=== PATIENT | male | born 1930 | race Caucasian/White ===

== ENCOUNTER 2019-03-10 03:30 | Emergency (ER) | payer MEDICARE, OTHER ==
[2019-03-10] MEDS ORDERED: Morphine 4 MG/ML VIAL ONE (04:17)
[2019-03-10 04:59] LABS: Hemoglobin 11.7 g/dL (14.0-18.0); Mean Corpuscular HGB CONC 33.5 g/dL (32.0-36.0); Mean Corpuscular Hemoglobin 36.8 pg (27.0-31.0); Mean Platelet Volume 8.3 fL (7.4-10.4); Platelet Count 245 thou/uL (130-400); RBC Distribution Width 13.1 % (11.5-14.5); Red Blood Cell (RBC) Count 3.19 mill/uL (4.70-6.10); White Blood Cell (WBC) Count 7.5 thou/uL (4.8-10.8)
[2019-03-10 05:17] LABS: ALT (SGPT) 30 U/L (8-55); AST (SGOT) 22 U/L (5-34); Albumin 4.2 g/dL (3.4-4.8); Alkaline Phosphatase 79 U/L (40-150); Anion Gap 11 mmol/L (10-20); BUN (Urea Nitrogen) 17 mg/dL (8.4-25.7); Bilirubin, Total 0.9 mg/dL (0.2-1.2); Calc. Creatinine Clearance 0 mL/min (70-130); Carbon Dioxide 25 mmol/L (23-31); Chloride 100 mmol/L (98-107); Estimated GFR-MDRD 79; Globulin 2.9 g/dL (2.4-3.5); Glucose 105 mg/dL (83-110); Lipase 28 U/L (8-78); Magnesium 2.2 mg/dL (1.6-2.6); Potassium 3.9 mmol/L (3.5-5.1); Protein, Total 7.1 g/dL (5.8-8.1); Sodium 132 mmol/L (136-145)
[2019-03-10 05:19] LABS: #Lymphocytes 1.7 thou/uL (1.20-3.40); #Monocytes 0.8 thou/uL (0.11-0.59); %Basophils 0.5 % (0.0-1.0); %Eosinophils 0.2 % (0.0-10.0); %Lymphocytes 22.5 % (21.0-51.0); %Monocytes 10.2 % (0.0-10.0); %Neutrophils 66.5 % (42.0-75.0)
[2019-03-10 05:20] LABS: MDiff Complete? YES; Macrocytosis MODERATE=16-30 cells (100X) (0-5/hpf); Platelet Morphology Comment Appears Adequate
--- NOTE | 2019-03-10 09:43 | CT ---
PRELIMINARY REPORT/[facility]/EMERGENCY AFTER HOURS PROCEDURE: EXAM: CT Abdomen and Pelvis With Contrast EXAM DATE/TIME: 03/10/2019 5:40 AM CLINICAL HISTORY: 88 years old, male; Patient HX: Gulshan presents to ED for lower abdominal pain that began on Saturday. Rep orts normal bm on Saturday morning, reports some increase in gas and abdominal distension. PT denies ch ills or fever, denies n/v/d, denies testicular pain, never had similar SX before. PT reports recent increase in leg swelling which is being treated by his pcp. Hx- allergy to penicillin and sulf a drugs; No medical problems; No abdominal surgeries TECHNIQUE: Imaging protocol: Computed tomography of the abdomen and pelvis with intravenous contrast. COMPARISON: No relevant prior studies available. FINDINGS: Lungs: There is compressive atelectasis the lung bases. Pleural space: There is moderate right and small left pleural effusion. Liver: There are multiple simple hepatic cysts. Gallbladder and bile ducts: The gallbladder is normal. There is no evidence of biliary ductal dilatio n. Pancreas: The pancreas appears normal. No ductal dilatation. Spleen: The spleen is normal. Adrenals: The adrenal glands are normal. Kidneys and ureters: There is wedge-shaped area of parenchymal hypoattenuation involving the lower po le of the left kidney possibly representing lower pole renal infarction. There are small right renal cortical defects possibly representing small cysts versus sequela from prior infection or injur y. Stomach and bowel: The stomach is normal. Appendix: No evidence of appendicitis. Intraperitoneal space: Unremarkable. No free air. No significant fluid collection. Vasculature: The vasculature demonstrates diffuse moderate atherosclerotic calcification. Lymph nodes: Unremarkable. No enlarged lymph nodes. Bladder: The bladder is normal. Reproductive: The prostate gland demonstrates nonspecific parenchymal calcifications. Bones/joints: Unremarkable. No acute fracture. Soft tissues: Unremarkable. IMPRESSION: 1. Wedge-shaped area of parenchymal hypoattenuation involving the lower pole of the left kidney suspi cious for lower pole renal infarction. 2. Moderate right and small left pleural effusion. Thank you for allowing us to participate in the care of your patient. Dictated and Authenticated by: Jimmy Robles MD 03/10/2019 6:06 AM Central Time ([place] & [place]) FINAL REPORT CT ABDOMEN AND PELVIS WITH CONTRAST: Date: 03/10/19 COMPARISON: 08/06/18. INDICATION: Abdominal pain, lower in location. FINDINGS: Interval development of a moderate sized area of hypoenhancement of the lower pole of the left kidney . There is also an interval small, wedge-shaped hypoattenuation of the lower right kidney. These find ings do indicate sequelae from renal infarction. Correlate clinically. Prominent pleural based diseaase with adjacent atelectasis partially visualized. Additional details are described above. Correlate clinically. I agree with the above provided preliminary interpretation from [facility]. POS: [facility]
[2019-03-10] MEDS ORDERED: ISOVUE-370 76%-LOCM 1 ML ONE (15:23)
== END 2019-03-10 07:40 | disposition home or self-care (01) ==
LOC: ERS 03:30
DX: N28.0 Ischemia and infarction of kidney (principal)
CPT/HCPCS: 74177; 80053; 83690; 83735; 85025; J2270

== ENCOUNTER 2019-03-10 20:06 | Inpatient (IN) | payer MEDICARE, OTHER ==
[2019-03-10 20:35] LABS: #Basophils 0.1 thou/uL (0.0-0.2); #Lymphocytes 2.5 thou/uL (1.20-3.40); #Monocytes 1.5 thou/uL (0.11-0.59); #Neutrophils 7.7 thou/uL (1.40-6.50); %Basophils 0.6 % (0.0-1.0); %Eosinophils 0.3 % (0.0-10.0); %Lymphocytes 21.1 % (21.0-51.0); %Monocytes 12.7 % (0.0-10.0); %Neutrophils 65.3 % (42.0-75.0); Hemoglobin 12.7 g/dL (14.0-18.0); Mean Corpuscular HGB CONC 34.1 g/dL (32.0-36.0); Mean Corpuscular Hemoglobin 37.3 pg (27.0-31.0); Platelet Count 277 thou/uL (130-400); RBC Distribution Width 13.3 % (11.5-14.5); Red Blood Cell (RBC) Count 3.42 mill/uL (4.70-6.10); White Blood Cell (WBC) Count 11.8 thou/uL (4.8-10.8)
[2019-03-10 20:35] LABS: Bilirubin Negative (Negative); Blood, Urine 3+ (Negative); Clarity Clear (Clear); Glucose, Urine (Dipstick) Normal (Negative); Leukocyte Negative Leu/uL (Negative); Nitrite Negative (Negative); Protein, Urine (Dipstick) 30 mg/dL (Neg-Trace); RBC/HPF 0-3 HPF (0-3); Squamous Epithelial 0-3 HPF (0-3); Urobilinogen Normal mg/dL (Less than 2)
[2019-03-10 20:36] LABS: Bacteria/HPF 1+ HPF (None Seen)
[2019-03-10 20:55] LABS: ALT (SGPT) 33 U/L (8-55); AST (SGOT) 25 U/L (5-34); Albumin 4.3 g/dL (3.4-4.8); Alkaline Phosphatase 82 U/L (40-150); Anion Gap 12 mmol/L (10-20); BUN (Urea Nitrogen) 15 mg/dL (8.4-25.7); Bilirubin, Total 1.2 mg/dL (0.2-1.2); Calc. Creatinine Clearance 0 mL/min (70-130); Carbon Dioxide 25 mmol/L (23-31); Chloride 97 mmol/L (98-107); Estimated GFR-MDRD 79; Glucose 117 mg/dL (83-110); Potassium 4.5 mmol/L (3.5-5.1); Protein, Total 7.3 g/dL (5.8-8.1); Sodium 129 mmol/L (136-145)
[2019-03-10] MEDS ORDERED: HYDROcodone/Acetaminophen 5/325 mg Tablet ONE (21:33)
--- NOTE | 2019-03-10 22:56 | RAD ---
Chest one view Abdomen 2 views HISTORY: Chest and abdomen pain. COMPARISON: 03/10/2019. Findings cardiac silhouette predominantly obscured by pleural fluid and bibasilar atelectasis, right greater than left. Pulmonary vasculature is unremarkable. Mediastinum is midline. No evidence of free subdiaphragmatic gas or pneumothorax. Gas and stool over the colon and rectum. No differential air-fluid levels or evidence of free subdiap hragmatic gas. Contrast material within the urinary bladder from recent CT scan. Prominent degenerative changes lumbar spine and hips. IMPRESSION: Nonspecific bowel gas pattern. Bilateral pleural fluid and bibasilar lung atelectasis.
[2019-03-10] MEDS ORDERED: Morphine 4 MG/ML VIAL ONE (23:02)
[2019-03-10 23:13] LABS: CKMB 2.4 ng/mL (0-6.6)
[2019-03-10] MEDS ORDERED: Aspirin Chewable 81 MG TAB ONE (23:40)
[2019-03-11 01:02] LABS: Troponin I 0.072 ng/mL (< 0.028)
[2019-03-11] MEDS ORDERED: Morphine 4 MG/ML VIAL SLOW IVP PRN (02:13)
[2019-03-11] MEDS ORDERED: Ondansetron ODT 4 MG TAB SL PRN (02:13)
[2019-03-11] MEDS ORDERED: Ondansetron PF 4 MG/2 ML Vial IVP PRN (02:13)
[2019-03-11 02:37] VITALS: BMI 23.8
[2019-03-11 05:51] LABS: Troponin I 0.055 ng/mL (< 0.028)
[2019-03-11] MEDS ORDERED: Acetaminophen 325 MG TAB PO PRN (07:42)
[2019-03-11] MEDS ORDERED: Morphine 2 MG/ML SYRINGE SLOW IVP PRN (07:57)
[2019-03-11] MEDS ORDERED: HYDROCORTISONE TOP SCH (09:00)
[2019-03-11] MEDS: Enoxaparin Sodium 80 MG/0.8 ML SYRINGE SC SCH ×2 (09:17→20:12)
[2019-03-11] MEDS: Hydrocortisone 1% Cream 30 GM TUBE TOP SCH ×2 (09:17→20:12)
[2019-03-11] MEDS: HYDROcodone/Acetaminophen 5/325 mg Tablet PO PRN ×2 (09:19→16:08)
[2019-03-11] MEDS: Timolol 0.5% Ophth Soln 5 ml Bottle EA EYE SCH (09:19)
[2019-03-11] MEDS: Latanoprost 0.005% Ophth Soln 2.5 ml Bottle EA EYE SCH ×2 (09:21→20:11)
[2019-03-11 12:26] LABS: Hemoglobin 12.7 g/dL (14.0-18.0); Platelet Count 215 thou/uL (130-400)
--- NOTE | 2019-03-11 13:43 | HP ---
HISTORY OF PRESENT ILLNESS: An 88-year-old white male, who had a recent history of recurrent rash on his left lower extremity. He was placed on steroids by me approximately 7 days ago. He reported onset of some lower abdominal pain. This was treated initially with Pepto-Bismol. Pain became progressively worse. He was seen in the emergency room once discharged home, came back due to significant increase of the pain. He has not noted any fever. He noted some nausea and some vomiting, but no diarrhea, no chest pain, no shortness of breath. Being evaluated in the ER, he was found to be in atrial fibrillation. CT scan of the abdomen did reveal a renal infarct of the left kidney with moderate small right and left pleural effusion. The patient has had no prior history of heart disease. No prior history of atrial fibrillation. He has now been admitted for atrial fibrillation with a renal infarct. He reports at this time he is still having . He reports no chest pain. No sense of palpitations. No nausea or vomiting at this time. No fever was noted. ALLERGIES: HE IS ALLERGIC TO CODEINE, PENICILLIN, AND SULFA. CURRENT MEDICATIONS: 1. Timolol. 2. Tramadol. 3. Latanoprost. PAST MEDICAL HISTORY: Positive for; 1. Glaucoma. 2. COPD. SURGICAL HISTORY: No prior history of surgery. SOCIAL AND PERSONAL HISTORY: The patient is a . He does not smoke. Drinks socially. He lives at home. REVIEW OF SYSTEMS: GI: Negative. As above. CARDIOVASCULAR: Negative except as above. PHYSICAL EXAMINATION: VITAL SIGNS: Temperature 97.6, BP 121/87, pulse 93, respirations 18, and sats 97%. GENERAL: . HEENT: Normocephalic and atraumatic. Throat clear. NECK: Supple. Full range of motion. No bruits. LUNGS: Bilateral breath sounds. HEART: rhythm without murmurs or rubs. ABDOMEN: Soft. quadrant tenderness to deep palpation. EXTREMITIES: Some redness bilaterally, this is old. He has had previous history of some dermatitis to the left lower extremity that has actually responded well to the steroids. LABORATORY DATA: Hemoglobin is 12.7 and hematocrit 37.4, WBC 11.8. Sodium 129, potassium 4.5, chloride 97, carbon dioxide 25, BUN 15, creatinine 0.91. troponins x3 are minimally elevated. EKG reveals atrial fibrillation with controlled ventricular response. IMPRESSION: 1. Atrial fibrillation, new onset. 2. Renal infarct, possibly renal infarct is related to the atrial fibrillation. 3. History of dermatitis to the left lower extremity. PLAN: 1. I started the patient . 2. Get cardiac consult. 3. renal infarct. Job ID: [id number]
--- NOTE | 2019-03-11 17:59 | CON ---
DATE OF CONSULTATION: 03/11/2019 REASON FOR CONSULTATION: Atrial fibrillation, new onset. PRIMARY SUPERVISOR [employer]: Dr. Chip Caban. HISTORY OF PRESENT ILLNESS: Mr. Trejo is a pleasant 88-year-old white gentleman, who comes to the hospital for abdominal pain. He was seen in the office in August of this year for lower extremity edema. He had lower extremity venous ultrasound ordered as well as an echo and a stress test. He only had a venous ultrasound done, which showed bilateral venous reflux at the level of the greater saphenous veins. He never had his echo or his stress test, and he never had a followup with me. He comes in as he has been having abdominal pain. In the ER, a CT of the abdomen showed what appears to be a renal infarct. He was also found to be in atrial fibrillation with RVR. Currently, he is rate controlled. He denies any chest pain, tightness, or pressure. He continues to have mild abdominal pain. PAST MEDICAL HISTORY: 1. Glaucoma. 2. COPD. 3. New onset atrial fibrillation, this admission. PAST SURGICAL HISTORY: None. OUTPATIENT MEDICATIONS: 1. Timolol ophthalmic solution. 2. Latanoprost ophthalmic solution. 3. Hydrocortisone topical b.i.d. ALLERGIES: 1. CODEINE. 2. PENICILLIN. 3. SULFA DRUGS. FAMILY HISTORY: Noncontributory. REVIEW OF SYSTEMS: A 12-point review of systems was done and was all negative unless stated in the history of present illness. SOCIAL HISTORY: No alcohol, tobacco, or drugs. PHYSICAL EXAMINATION: VITAL SIGNS: Temperature 98.3, pulse 74, respiratory rate 18, sat 94% on room air, and blood pressure 113/57. GENERAL: Awake, alert, and oriented x3, in no distress. HEENT: Normocephalic and atraumatic. NECK: Supple. LUNGS: Clear. CARDIOVASCULAR: S1 and S2. No S3 or S4. Irregularly irregular. Heart rate in the 70s to 80s. ABDOMEN: Soft. Positive bowel sounds. EXTREMITIES: No edema. SKIN: Warm and dry. LABORATORY DATA: Laboratory work was reviewed. White count of 11, hemoglobin of 12, hematocrit 37, platelet count of 277. Chemistries with sodium of 129, potassium 4.5, chloride of 97, carbon dioxide 25, normal BUN and creatinine, GFR of 79. Troponin was 0.07, 0.07, and 0.05. UA with 3+ blood, 30 protein, [address] of the abdomen shows what appears to be a renal infarct. EKG was reviewed. ASSESSMENT: 1. New onset atrial fibrillation. 2. Embolic phenomenon with renal infarct. PLAN: 1. Certainly, embolic phenomena should be treated as CVA, which would give him a CHADS-VASc score of 4, he would benefit with full anticoagulation. We will plan on putting him on Lovenox for now just in case to make sure that he is not going to have any major side effects from bleeding into renal capsule in case this infarct becomes hemorrhagic. At this point, he is not interested in any invasive interventions, not interested in LUISA cardioversion. He just wants to get medications. We will get an ultrasound of his heart to see what his LV function is. 2. If Lovenox is tolerated, we will switch him to Eliquis 5 mg twice a day. 3. Currently, he is rate controlled on current regimen. We will just add very low-dose beta marleny with metoprolol succinate 12.5 mg daily. Thank you for letting me to participate in the care of your patient. We will follow. Job ID: [id number]
[2019-03-12] MEDS: HYDROcodone/Acetaminophen 5/325 mg Tablet PO PRN (03:12)
[2019-03-12] MEDS: Enoxaparin Sodium 80 MG/0.8 ML SYRINGE SC SCH (08:16)
[2019-03-12] MEDS: Hydrocortisone 1% Cream 30 GM TUBE TOP SCH (08:17)
[2019-03-12] MEDS: Timolol 0.5% Ophth Soln 5 ml Bottle EA EYE SCH (08:18)
[2019-03-12] MEDS: Latanoprost 0.005% Ophth Soln 2.5 ml Bottle EA EYE SCH (08:23)
[2019-03-12] MEDS ORDERED: Apixaban 5 MG TAB PO SCH (09:00)
[2019-03-12 11:18] VITALS: BP 118/63; TEMP 97.8
--- NOTE | 2019-03-12 17:00 | PDOC.CPN ---
- Subjective Date: 03/12/19 Time: 12:45 - Review of Systems General: denies: fever/chills, weight/appetite/sleep changes, night sweats, fatigue Respiratory: denies: cough, congestion, shortness of breath, exercise intolerance Cardiovascular: denies: chest pain, palpitation, edema, paroxysmal nocturnal dyspnea, orthopnea Gastrointestinal: denies: nausea, vomiting, diarrhea, constipation, abd pain, GI bleeding Musculoskeletal: denies: pain, tenderness, stiffness, swelling, arthritis/ arthralgias Neurological: denies: numbness, syncope, seizure, weakness - Objective Allergies/Adverse Reactions: Allergies Allergy/AdvReac Type Severity Reaction Status Date / Time codeine Allergy Verified 03/11/19 02:12 Penicillins Allergy Verified 03/11/19 02:12 Sulfa (Sulfonamide Allergy Verified 03/11/19 02:12 Antibiotics) Vital Signs & Weight: Vital Signs Temp Pulse Resp BP Pulse Ox 03/12/19 11:00 97.8 F 76 20 118/63 96 03/12/19 07:06 99.4 F 89 17 134/62 92 L Weight 164 lb 8 oz - CHADS-VASc Age >75: 2 Risk Score: 2 - Quality Measures Condition: Atrial Fibrillation/Flutter (hx or current) CV meds: Beta Aubrie: Yes, Anticoagulant: Yes - Physical Exam General: alert & oriented x3, no apparent distress HEENT: mucus membranes moist Neck: supple neck Cardiac: irregularly regular Lungs: clear to auscultation Neuro: grossly intact Abdomen: active bowel sounds, soft, non-tender Skin: clear Musculoskeletal: normal range of motion - Labs Result Diagrams: 03/11/19 12:15 03/11/19 12:15 Troponin/CKMB CK-MB (CK-2) 2.4 ng/mL (0-6.6) 03/10/19 20:27 Troponin I 0.055 ng/mL (< 0.028) H 03/11/19 04:27 - Telemetry Supraventricular conduction: atrial fibrillation - Assessment/Plan Assessment/Plan: 1. Nesw onset afib. 2. Embolic phenomenon with acute renal infarct likely from Afib. PLAN: - Eliquis 5 mg BID for stroke prophylaxis. - Metoprolol for rate control. - May discharge from cardiac perspective. - Follow up in 1-2 months.
--- NOTE | 2019-03-13 10:49 | DIS ---
DATE OF ADMISSION: 03/10/2019 DATE OF DISCHARGE: 03/12/2019 DISCHARGE DIAGNOSES: 1. Atrial fibrillation, new onset. 2. 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 HOSPITAL SUMMARY: The patient is an 88-year-old male who was admitted 03/11/2019, with left lower quadrant pain. He was found to be in atrial fibrillation. CT scan of the head revealed a left renal infarct. It was thought that his atrial fibrillation started embolic phenomenon which resulted in left renal infarct. He subsequently was placed in the hospital, placed on IV Lovenox. 2D echocardiogram was done, which did not show any evidence of any intra-atrial clotting. He subsequently was placed on Eliquis 5 mg b.i.d. By the 2nd hospital day, he was able to be discharged home on Eliquis 5 mg b.i.d., tramadol 50 mg as needed for pain and metoprolol 25 mg 1/2 tab p.o. daily. He will be seen in followup by me in 10 days. Job ID: [id number]
== END 2019-03-12 14:20 | disposition home or self-care (01) | DRG 309 ==
LOC: ERS 20:06 → 2NO 23:50
PROVIDERS: ADMIT Family Medicine; ATTEND Family Medicine
DX: I48.91 Unspecified atrial fibrillation (principal); N28.0 Ischemia and infarction of kidney; J44.9 Chronic obstructive pulmonary disease, unspecified; H40.9 Unspecified glaucoma; Z88.0 Allergy status to penicillin; Z88.2 Allergy status to sulfonamides; Z88.5 Allergy status to narcotic agent
CPT/HCPCS: 36415; 74022; 74177; 80053; 81003; 81015; 82553; 82565; 83605; 83690; 83735; 84484; 85014; 85018; 85025; 85049; 93005; 93306; 96361; 96374; J1650; J2270; Q9966

== ENCOUNTER 2019-07-13 16:37 | Inpatient (IN) | payer MEDICARE, OTHER ==
[2019-07-13] MEDS ORDERED: Furosemide 40 MG/4 ML VIAL ONE (17:26)
[2019-07-13 17:35] LABS: #Eosinphils 0.1 thou/uL (0.0-0.7); #Lymphocytes 2.5 thou/uL (1.20-3.40); #Monocytes 0.9 thou/uL (0.11-0.59); %Basophils 0.2 % (0.0-1.0); %Eosinophils 1.4 % (0.0-10.0); %Lymphocytes 38.6 % (21.0-51.0); %Monocytes 13.7 % (0.0-10.0); %Neutrophils 46.1 % (42.0-75.0); Hemoglobin 10.5 g/dL (14.0-18.0); Mean Corpuscular HGB CONC 32.8 g/dL (32.0-36.0); Mean Corpuscular Hemoglobin 35.2 pg (27.0-31.0); Mean Platelet Volume 7.5 fL (7.4-10.4); Platelet Count 302 thou/uL (130-400); RBC Distribution Width 14.7 % (11.5-14.5); Red Blood Cell (RBC) Count 2.99 mill/uL (4.70-6.10); White Blood Cell (WBC) Count 6.5 thou/uL (4.8-10.8)
[2019-07-13 17:57] LABS: ALT (SGPT) 27 U/L (8-55); AST (SGOT) 36 U/L (5-34); Albumin 3.7 g/dL (3.4-4.8); Alkaline Phosphatase 120 U/L (40-110); Anion Gap 14 mmol/L (10-20); BUN (Urea Nitrogen) 18 mg/dL (8.4-25.7); Bilirubin, Total 0.6 mg/dL (0.2-1.2); Calc. Creatinine Clearance 0 mL/min (70-130); Calcium 8.6 mg/dL (7.8-10.44); Carbon Dioxide 22 mmol/L (23-31); Chloride 102 mmol/L (98-107); Estimated GFR-MDRD 67; Globulin 4.1 g/dL (2.4-3.5); Glucose 103 mg/dL (83-110); Potassium 5.1 mmol/L (3.5-5.1); Protein, Total 7.8 g/dL (5.8-8.1); Sodium 133 mmol/L (136-145)
[2019-07-13 18:08] LABS: CKMB 2.2 ng/mL (0-6.6)
--- NOTE | 2019-07-13 18:36 | RAD ---
PORTABLE CHEST: 07/13/2019 PROVIDED CLINICAL HISTORY: Dyspnea. COMPARISON: 03/10/2019 FINDINGS: The lungs are hypoinflated. Bibasilar pleural parenchymal opacities persist, increased with respect t o the prior study. The cardiac silhouette is largely obscured but appears grossly similar. Prominence of the pulmonary vasculature and pulmonary interstitium are noted. There is no evidence for a pneumo thorax. IMPRESSION: Findings consistent with congestive failure with increasing bilateral pleural effusions and adjacent passive atelectasis and/or infiltrate. POS: [facility]
[2019-07-13] MEDS ORDERED: Acetaminophen 325 MG TAB PO PRN (19:58)
--- NOTE | 2019-07-13 20:45 | HP ---
CHIEF COMPLAINT: Difficulty breathing. HISTORY OF PRESENT ILLNESS: This is an 88-year-old male with history of atrial fibrillation, on full anticoagulation, BPH, glaucoma, constipation, who presents to the emergency room with a complaint of difficulty breathing. The patient reports swelling in his legs over the past 2-3 months and over the past 4-5 days he has had significant shortness of breath with short ambulation. He states that it had been going on for some time. However, he would get exhausted, but was able to recover faster and go farther. Over the past few days, he has gone 3-4 steps and felt exhausted with difficulty breathing. He had to wait until he could catch his breath to be able to ambulate any further. He at one point developed a funny feeling in his chest, which he describes as tightness in the substernal area. Today, he called his primary care provider, Dr. Ward and was directed to the emergency room. In addition to the above symptoms, the patient notes orthopnea. He is basically sleeping upright, there is swelling in his legs over the past 2-3 months, and at least a 10-pound weight gain over the same time. He denies any nausea, vomiting , appetite changes, or fevers. In the emergency room presentation consistent with heart failure. The patient received Lasix 40 mg IV and hospitalist called for admission. ALLERGIES: 1. CODEINE. 2. PENICILLIN. 3. SULFA. CURRENT MEDICATIONS: Reconciled with the list provided by the patient. 1. MiraLAX 1 serving daily. 2. Metoprolol 25 mg one-half tablet daily. 3. Furosemide 40 mg daily. 4. Eliquis 5 mg b.i.d. 5. Tamsulosin 0.4 mg daily. 6. Eyedrops timolol 0.5% OU b.i.d. 7. Latanoprost 0.05% OU at bedtime. PAST MEDICAL HISTORY: 1. Atrial fibrillation. 2. BPH. 3. Glaucoma. 4. Constipation. PAST SURGICAL HISTORY: Cataract removal. SOCIAL HISTORY: The patient lives alone, denies tobacco. His surrogate decision maker is his neighbor, Delon and he is a full code. He reports no advance directive that Delon has access to. FAMILY HISTORY: Significant for father who had heart problems. REVIEW OF SYSTEMS: Positive for orthopnea, lower extremity edema, postnasal drip, chills, cough. Negative for nausea, vomiting, appetite changes, fevers, change in urination. All remaining review of systems are reviewed and negative. PHYSICAL EXAMINATION: VITAL SIGNS: Blood pressure 120/71, pulse 87, respirations 18, temp 98.0, sat 95% on room air. GENERAL: Awake, alert, responsive, in no apparent distress. Able to speak in normal sentences. HEENT: His pupils are equal and round. Oral mucosa is pink and moist. NECK: Supple, nontender. LYMPHATICS: No palpable cervical or supraclavicular lymphadenopathy. LUNGS: Decreased breath sounds at the bilateral bases. No audible wheezing, rhonchi or rales. HEART: Normal S1, S2. Irregular rate and rhythm. No significant murmurs. ABDOMEN: Soft with present bowel sounds. Nontender, nondistended. EXTREMITIES: He has 2+ pitting edema bilateral in addition to some mild erythema of his lower extremities. VASCULAR: 2+ radial pulses. NEUROLOGIC: No focal deficits. PSYCHIATRIC: Appears euthymic. SKIN: Erythema of his lower extremities consistent with edema. LABORATORY DATA: Test results, CBC: 6.5, 10.5, 32.1, 302 with an MCV of 107. Chemistry; 133, 5.1, 102, 22, 18, 1.05, and 103. T bilirubin 0.6, AST 36, ALT 27, alkaline phosphatase 120, total protein 7.8, albumin 3.7. Troponin 0.068. BNP 653. IMAGIN. Chest x-ray shows pleural effusions, adjacent passive atelectasis and/or infiltrate consistent with congestive heart failure. 2. EKG is personally reviewed - atrial fibrillation, normal axis, abnormal R wave progression, no ST changes. Rate 89. IMPRESSION: 1. Acute congestive heart failure, unknown type. 2. Atrial fibrillation, on full anticoagulation with Eliquis. 3. Anemia, chronic with elevated MCV. 4. Mildly elevated liver function tests. 5. Mildly elevated troponin consistent with heart failure. 6. Glaucoma. 7. Benign prostatic hypertrophy. 8. Constipation. PLAN: 1. Admission to the hospital. 2. Continue diuresing with IV Lasix, will monitor on telemetry and obtain 2 more troponins. 3. Cardiology consultation and echocardiogram. 4. Monitor renal function including potassium. 5. We will continue his full anticoagulation as well as his low-dose beta marleny. 6. Continuing his other home medications of tamsulosin eyedrops and MiraLAX. 7. We will check TSH as well as iron, ferritin, and vitamin B12 and folate levels to characterize the anemia. 8. Deep venous thrombosis prophylaxis. He is fully anticoagulated with Eliquis. I do not think he would tolerate sequential compression devices due to the swelling in his legs. 9. Gastrointestinal prophylaxis, not indicated. 10. He will be written for a heart healthy, fluid-restricted diet. 11. Code status is full. Surrogate decision maker is his neighbor, Delon. Of note, patient would not want any prolonged measures and states that this is outlined in his advance directive. 12. Reviewed the plan of care with both the patient and Delon. No questions or further needs at the end of evaluation. 13. The patient is at high risk given age comorbidities and current presentation. Job ID: [id number] MTDD
[2019-07-13 21:43] LABS: Troponin I 0.099 ng/mL (< 0.028)
[2019-07-13] MEDS: Timolol 0.5% Ophth Soln 5 ml Bottle EA EYE SCH (22:29)
[2019-07-13] MEDS: Apixaban 5 MG TAB PO SCH (22:29)
[2019-07-13] MEDS: Tamsulosin HCl 0.4 MG CAP PO SCH (22:29)
[2019-07-13] MEDS: Latanoprost 0.005% Ophth Soln 2.5 ml Bottle EA EYE SCH (22:29)
[2019-07-14 00:33] LABS: Troponin I 0.096 ng/mL (< 0.028)
[2019-07-14 04:41] LABS: #Eosinphils 0.1 thou/uL (0.0-0.7); #Lymphocytes 3.6 thou/uL (1.20-3.40); #Monocytes 0.9 thou/uL (0.11-0.59); #Neutrophils 2.9 thou/uL (1.40-6.50); %Eosinophils 0.7 % (0.0-10.0); %Lymphocytes 48.1 % (21.0-51.0); %Monocytes 12.4 % (0.0-10.0); %Neutrophils 38.8 % (42.0-75.0); Hemoglobin 10.7 g/dL (14.0-18.0); Mean Corpuscular HGB CONC 32.9 g/dL (32.0-36.0); Mean Corpuscular Hemoglobin 34.6 pg (27.0-31.0); Mean Platelet Volume 7.7 fL (7.4-10.4); Platelet Count 283 thou/uL (130-400); RBC Distribution Width 14.6 % (11.5-14.5); Red Blood Cell (RBC) Count 3.09 mill/uL (4.70-6.10); White Blood Cell (WBC) Count 7.4 thou/uL (4.8-10.8)
[2019-07-14] MEDS: Furosemide 40 MG/4 ML VIAL SLOW IVP SCH ×2 (05:06→13:33)
[2019-07-14 05:07] LABS: Anion Gap 14 mmol/L (10-20); BUN (Urea Nitrogen) 17 mg/dL (8.4-25.7); Calc. Creatinine Clearance 53 mL/min (70-130); Calcium 8.7 mg/dL (7.8-10.44); Carbon Dioxide 23 mmol/L (23-31); Chloride 106 mmol/L (98-107); Estimated GFR-MDRD 72; Glucose 81 mg/dL (83-110); Iron 50 ug/dL (65-175); Sodium 139 mmol/L (136-145)
[2019-07-14 05:20] VITALS: BMI 23.6
[2019-07-14 05:29] LABS: Ferritin 56.4 ng/mL (22-322); Thyroid Stimulating Hormone 3.077 uIU/mL (0.35-4.94)
[2019-07-14] MEDS: Apixaban 5 MG TAB PO SCH ×2 (09:56→20:21)
[2019-07-14] MEDS: Timolol 0.5% Ophth Soln 5 ml Bottle EA EYE SCH ×3 (09:57→20:23)
[2019-07-14] MEDS: Polyethylene Glycol 3350 17 GM Packet PO SCH (09:58)
--- NOTE | 2019-07-14 17:25 | CON ---
DATE OF CONSULTATION: 07/14/2019 PRIMARY CARE PHYSICIAN: Nick Ward MD HISTORY OF PRESENT ILLNESS: Mr. Trejo is a very pleasant 88-year-old white gentleman, very well known to myself, who comes to the hospital for worsening shortness of breath. He states he has noticed that over the past week he has become short of breath with any exertion. He has a history of chronic lower extremity edema, which he has dealt for many months now. He is actually scheduled to have a vein ablation by Dr. Birch next week. During our initial evaluation, he had a stress test, that was minimally abnormal. He told us he was not interested in any heart catheterization or any invasive interventions. He was admitted to the hospital back in March, at which point he was given a new diagnosis of atrial fibrillation. He was not interested in any shocks at that point, so he was treated medically. He comes in today because of worsening shortness of breath. He was given IV Lasix and he is already feeling much better after diuresing. He reported a little chest tightness during this time as well, but only during his episodes of shortness of breath. PAST MEDICAL HISTORY: 1. History of atrial fibrillation, persistent. 2. BPH. 3. Glaucoma. 4. Constipation. 5. Venous insufficiency. SURGICAL HISTORY: Cataract removal. OUTPATIENT MEDICATIONS: 1. MiraLAX. 2. Metoprolol 25 mg half a tablet daily. 3. Furosemide 40 mg a day. 4. Eliquis 5 mg b.i.d. 5. Tamsulosin 0.4 mg a day. 6. Timolol eye drops. 7. Latanoprost eye drops. ALLERGIES: 1. CODEINE. 2. PENICILLIN. 3. SULFA DRUGS. SOCIAL HISTORY: No alcohol, tobacco, or drugs. FAMILY HISTORY: Noncontributory. REVIEW OF SYSTEMS: A 12-point review of systems was done and was all negative unless stated in the history of present illness. PHYSICAL EXAMINATION: VITAL SIGNS: Temperature 97.3, pulse 75, respiratory rate 16, satting 95% on room air, and blood pressure 103/52. GENERAL: Awake, alert, and oriented x3, in no distress. HEENT: Normocephalic and atraumatic. NECK: Supple. LUNGS: Mild crackles at the bases. CARDIOVASCULAR: S1 and S2. No S3 or S4. No murmurs. ABDOMEN: Soft. Positive bowel sounds. EXTREMITIES: 1+ edema. There is erythema in the right lower extremity, this is a new finding. LABORATORY DATA: Laboratory work was reviewed. White count of 6, hemoglobin of 10.5, hematocrit 32, and platelet count of 302. Chemistry is unremarkable. Troponin was 0.06, 0.09, and 0.09. BNP was 653. Normal B12 and folate. Normal TSH. EKG was reviewed, atrial fibrillation. Telemetry was reviewed. He is in atrial fibrillation chronically now, but rate controlled in the 60 to 70s. ASSESSMENT AND PLAN: 1. [id number] diastolic heart failure. 2. Atrial fibrillation, currently rate controlled. 3. Chronic anticoagulation with Eliquis. 4. Abnormal stress test recently, not interested in any invasive interventions. 5. Venous insufficiency. 6. Possible right lower extremity cellulitis. PLAN: 1. Continue IV diuresis. 2. He is already feeling much better with one day of IV Lasix. Would consider adding antibiotics for possible right lower extremity cellulitis as this erythema on his leg is something new. 3. Not interested in any invasive procedures at this time. Continue conservative therapy with Eliquis and rate control with beta-marleny. Thank you for letting us to participate in the care of this patient. We will follow. Job ID: [id number]
--- NOTE | 2019-07-14 18:09 | PDOC.HOSPP ---
- Subjective Encounter Date: 07/14/19 Encounter Time: 17:50 Subjective: f/u for chronic A-fib and acute/chronic diastolic CHF on IV Lasix. Feels much better overall. - Objective Vital Signs & Weight: Vital Signs (12 hours) Temp Pulse Resp BP Pulse Ox 07/14/19 17:37 98.0 F 97 19 125/60 96 07/14/19 11:40 97.3 F L 75 16 103/52 L 95 07/14/19 07:21 97.7 F 90 19 125/56 L 94 L Weight Weight 162 lb I&O: 07/13/19 07/14/19 07/15/19 06:59 06:59 06:59 Intake Total 450 Output Total 600 Balance -150 Result Diagrams: 07/14/19 04:15 07/14/19 04:15 Additional Labs: Laboratory Tests 06/02/19 07/13/19 07/13/19 10:16 16:55 17:23 Hgb MCV Troponin I 0.068 H B-Natriuretic Peptide 604.9 H 653.4 H Vitamin B12 Folate TSH 3rd Generation 07/13/19 07/13/19 07/14/19 17:23 21:13 00:03 Hgb 10.5 L MCV 107.0 H Troponin I 0.099 H 0.096 H B-Natriuretic Peptide Vitamin B12 Folate TSH 3rd Generation 07/14/19 07/14/19 04:15 04:15 Hgb MCV Troponin I B-Natriuretic Peptide Vitamin B12 492 Folate 16.70 TSH 3rd Generation 3.0770 Radiology Reviewed by me: Yes (Echo - EF 55-60%, mod CINDA, TR, MR) EKG Reviewed by me: Yes (Tele - A-fib in 80's) Hospitalist ROS - Medication Medications: Active Medications Generic Name Dose Route Start Last Admin Trade Name Freq PRN Reason Stop Dose Admin Apixaban 5 mg 07/13/19 21:00 07/14/19 09:56 Eliquis PO 5 mg BID TANJA Administration Furosemide 40 mg 07/14/19 06:00 07/14/19 13:33 Lasix SLOW IVP 40 mg 0600,1400 TANJA Administration Latanoprost 1 drop 07/13/19 21:00 07/13/19 22:29 Xalatan 0.005% Ophth Soln EA EYE 1 drop HS TANJA Administration Metoprolol Succinate 12.5 mg 07/14/19 09:00 07/14/19 09:56 Toprol Xl PO 12.5 mg DAILY TANJA Administration Polyethylene Glycol 17 gm 07/14/19 09:00 07/14/19 09:58 Miralax PO Not Given DAILY TANJA Tamsulosin HCl 0.4 mg 07/13/19 21:00 07/13/19 22:29 Flomax PO 0.4 mg HS TANJA Administration Timolol Maleate 1 drop 07/13/19 21:00 07/14/19 09:57 Timoptic 0.5% Ophth Soln EA EYE 1 drop BID TANJA Administration - Exam General Appearance: NAD, awake alert Eye: PERRL, anicteric sclera ENT: normocephalic atraumatic, no oropharyngeal lesions Neck: supple, symmetric, no JVD, no thyromegaly Heart: no gallops, no rubs, irregular Respiratory: normal chest expansion Respiratory - other findings: basilar crackles Gastrointestinal: soft, non-tender, non-distended, normal bowel sounds, no palpable masses Extremities: no cyanosis, 1+ LE edema Extremities - other findings: RLE erythema, no calor Skin: normal turgor Neurological: cranial nerve grossly intact, no new deficit Musculoskeletal: normal tone, normal strength Psychiatric: normal affect, A&O x 3 Hosp A/P (1) Acute on chronic diastolic (congestive) heart failure Code(s): I50.33 - ACUTE ON CHRONIC DIASTOLIC (CONGESTIVE) HEART FAILURE Status : Acute Plan: Continue Lasix IV, serial I/O's, daily weight (2) Chronic atrial fibrillation Code(s): I48.20 - CHRONIC ATRIAL FIBRILLATION, UNSPECIFIED Status: Chronic Plan: Rate-controlled, continue Eliquis, Metoprolol (3) Chronic anticoagulation Code(s): 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
[2019-07-14] MEDS: Tamsulosin HCl 0.4 MG CAP PO SCH (20:22)
[2019-07-14] MEDS: Latanoprost 0.005% Ophth Soln 2.5 ml Bottle EA EYE SCH (20:22)
[2019-07-15] MEDS: Furosemide 40 MG/4 ML VIAL SLOW IVP SCH ×2 (05:21→14:45)
[2019-07-15] MEDS: Timolol 0.5% Ophth Soln 5 ml Bottle EA EYE SCH (09:16)
[2019-07-15] MEDS: Apixaban 5 MG TAB PO SCH (09:16)
[2019-07-15] MEDS: Polyethylene Glycol 3350 17 GM Packet PO SCH (09:16)
[2019-07-15 11:57] VITALS: TEMP 97.6
[2019-07-15 15:40] VITALS: BP 107/72
--- NOTE | 2019-07-16 02:52 | DIS ---
DATE OF ADMISSION: 07/13/2019 DATE OF DISCHARGE: 07/15/2019 DISCHARGE DIAGNOSES: 1. Acute on chronic diastolic congestive heart failure. 2. Chronic atrial fibrillation, rate controlled, on chronic Eliquis. 3. Chronic anticoagulation with Eliquis. 4. Venous stasis dermatitis with mild cellulitis of right lower extremity. CONSULTATIONS: Dr. Caban with Cardiology Service. PERTINENT LABORATORY AND X-RAY FINDINGS: Sodium ranged between 133 to 139. Serum iron level is 50, ferritin 56.4. AST 36, ALT of 27, alkaline phosphatase 120. Troponin I ranged between 0.068 to 0.099. BNP 653. Vitamin B12 level 492, folate 16.7, TSH 3.08. CBC showed a hemoglobin ranged between 10.5 to 10.7. Portable chest x-ray dated 07/13/2019, showed pulmonary edema bilaterally with bilateral pleural effusions. 2D transthoracic echocardiogram dated 07/14/2019 showed ejection fraction of 55% to 60%. Moderate right atrial enlargement. Moderate tricuspid regurgitation. Small pericardial effusion without tamponade. HOSPITAL COURSE: The patient was admitted to the telemetry unit after initially presenting with increased shortness of breath with lower extremity swelling and congestive heart failure exacerbation. Chest imaging showed evidence of pulmonary edema and bilateral pleural effusions, at which point, the patient was placed on IV Lasix and monitored on the telemetry unit. The patient with chronic atrial fibrillation with rate control, on chronic anticoagulation with Eliquis. The patient continued IV Lasix with excellent diuresis and stabilization of pulmonary status. The patient clinically improved with diuretic therapy, and was evaluated by the Cardiology Service. The patient continued Lasix throughout the hospital course, transitioning to oral Lasix for home dosing. The patient also received doxycycline due to mild right lower extremity cellulitis in the context of chronic venous stasis. I have examined the patient at the time of discharge and discussed followup instructions. The patient verbalizes understanding and agreement, ready for discharge on 07/15/2019. DISCHARGE MEDICATIONS: 1. Lasix 40 mg p.o. daily. 2. Xalatan 0.005% one drop to each eye b.i.d. 3. Flomax 0.4 mg p.o. at bedtime. 4. Timoptic 0.5% one drop to each eye b.i.d. 5. Eliquis 5 mg p.o. b.i.d. 6. Doxycycline 100 mg p.o. b.i.d. x7 days. 7. Toprol-XL 12.5 mg p.o. daily. FOLLOWUP: The patient to follow up with Dr. Nick Ward within 7 days of discharge. The patient will follow up with Dr. Chris Wang and to call his office for appointment time and date. CONDITION ON DISCHARGE: Fair. ACTIVITY: Ad-godwin. Rolling walker for ambulation. Recommend home health with physical therapy. DIET: Heart healthy. CODE STATUS: Full. DISPOSITION: Home with Home Health Services, 07/15/2019. TIME SPENT: Total time preparing and coordinating discharge is 34 minutes. Job ID: [id number]
== END 2019-07-15 15:43 | disposition home health service (06) | DRG 292 ==
LOC: ERS 16:37 → 2NO 20:21
PROVIDERS: ADMIT Family Medicine; ATTEND Family Medicine
DX: I50.33 Acute on chronic diastolic (congestive) heart failure (principal); L03.115 Cellulitis of right lower limb; I48.19 Other persistent atrial fibrillation; N40.0 Benign prostatic hyperplasia without lower urinary tract symptoms; H40.9 Unspecified glaucoma; D64.9 Anemia, unspecified; J44.9 Chronic obstructive pulmonary disease, unspecified; I87.2 Venous insufficiency (chronic) (peripheral); R74.8 Abnormal levels of other serum enzymes; K59.00 Constipation, unspecified; Z88.0 Allergy status to penicillin; Z79.01 Long term (current) use of anticoagulants; Z88.2 Allergy status to sulfonamides; Z88.5 Allergy status to narcotic agent; Z79.899 Other long term (current) drug therapy
CPT/HCPCS: 36415; 71045; 80048; 80053; 82553; 82607; 82728; 82746; 83540; 83880; 84443; 84484; 85025; 93005; 93306; 93798; 96374; J1940; J3490

== ENCOUNTER 2020-08-31 09:48 | Outpatient (CLI) | payer MEDICARE ==
--- NOTE | 2020-08-31 11:48 | CT ---
CT ABDOMEN AND PELVIS WITH IV CONTRAST 08/31/2020 CLINICAL INFORMATION: Prostate cancer. Difficulty urinating. COMPARISON: CT pelvis on 05/01/2019 and 03/10/2019. Technique: Multiple contiguous axial CT images are obtained through the abdomen and pelvis with IV contrast. Cor onal reformatted images are provided. FINDINGS: Lower Chest: Very large right pleural effusion with small left pleural effusion are present with cons olidation present at right lung base likely due to passive atelectasis. However, pneumonitis right lung base would be difficult to entirely exclude. There is atelectasis at the left lung base. Heart i s enlarged. Vessels: Vascular calcifications are seen in a mildly tortuous abdominal aorta and involving the rocio c arteries. Abdomen: Portal vein:Not opacified on this exam. Gallbladder: Within normal limits for CT imaging. Liver: Scattered hypodense lesions are again seen in each lobe of the liver largest in the lateral se gment left hepatic lobe measuring 1.7 cm which are unchanged compared to study in 2019 and statistically likely represent cysts given stability over this period of time. Spleen: within normal limits. Pancreas: within normal limits. Adrenals: within normal limits. Kidneys: Nonobstructing 5 mm x 2 mm calculus inferior pole right kidney. No left renal calculus is se en. A 1.1 cm fluid attenuation hypodense cystic lesion is seen midportion left kidney most compatible with a cyst. Areas of scarring are seen involving the posterior and inferior pole right ki dney as well as inferior pole left kidney. There is no hydronephrosis or enhancing renal mass seen. Bowel: Small amount retained fecal material seen throughout the colon. Gaseous distention of the cui sverse colon is present. Peritoneum: No ascites or free air; no fluid collection. Mesentery and Retroperitoneum: No enlarged mesenteric or retroperitoneal lymph nodes. Abdominal Wall: Mild subcutaneous edema anterior pelvis and extending into the region of the scrotum. Pelvis: Reproductive Organs: Small focal eccentric area of enhancement was seen in the right aspect of the pr ostate gland on a prior CT exam in 2019. There is now a large lobulated mass with low-attenuation area centrally likely due to necrotic prostate neoplastic process. This lobulated mass measures appro ximately 8.8 cm cranial caudal x9 cm AP x5.6 cm transverse. This mass results in deviation of the ureter as represented by course of the Hinds catheter in place. This mass also results in mass effect on the posterior wall the urinary bladder. This mass also abuts the anterior and right anterolateral lateral aspect of the rectum and extends to the right pelvic sidewall and abuts the rig ht obturator internus muscle. Involvement of the base urinary bladder or colon is a possibility Bladder: Decompressed due to Hinds catheter in place. Bones: Multilevel degenerative changes are seen in the spine. Bilateral hip osteoarthritis is present . There are irregular irregular lytic and sclerotic lesions involving each superior pubic ramus and right pubic bone with evidence of nondisplaced pathological fractures involving each superior pubic r amus. There is suggestion of a small soft tissue component involving the metastatic lesion of the right superior pubic ramus and right pubic bone. IMPRESSION: 1. Enlarged lobulated necrotic mass in the pelvis most compatible with prostate neoplasm. This repres ents significant interval enlargement of an area of enhancement in the right aspect of the prostate gland on study in 2019. This large lobulated mass abuts the base of the urinary bladder as well as th e anterior aspect of the colon and also extends laterally to abut the right obturator internus muscle in the right hemipelvis. 2. Irregular lytic and sclerotic metastatic lesions involving each superior pubic ramus and right pub ic bone with evidence of pathological fractures involving each of these metastatic lesions. 3. No enlarged lymph nodes are seen by CT size criteria. However, there are mildly prominent bilatera l inguinal lymph nodes largest on the right measuring 1.2 cm. 4. Cardiomegaly. 5. Moderately large right pleural effusion with small left pleural effusion. Consolidation at each julio ng base which may be related to atelectasis. Pneumonia right lung base cannot be excluded. 6. Additional findings as above. 7. Above findings discussed Dr. Alvarez on 08/31/2020 at 1143 hours
[2020-08-31] MEDS ORDERED: Iopamidol 370 76% 100 ML VIAL ONE (14:22)
--- NOTE | 2020-08-31 14:41 | NM ---
Radionucleotide bone scan HISTORY: Prostate cancer. Initial staging. COMPARISON: Correlated with CT abdomen/pelvis on the same date. FINDINGS: Degenerative type uptake involves the shoulders and thoracolumbar spine. Urinary bladder de compressed by Hinds catheter. Markedly abnormal uptake involves each superior pubic ramus, in the area of incompletely healed, path ologic-appearing fractures on recent CT. IMPRESSION : The only pathologic osseous uptake is associated with the healing bilateral superior pubic rami fract ures. No other osseous metastases are apparent.
== END 2020-08-31 09:49 | disposition home or self-care (01) ==
LOC: CT 09:48
PROVIDERS: ATTEND Urology
DX: C61 Malignant neoplasm of prostate (principal); M89.9 Disorder of bone, unspecified; I51.7 Cardiomegaly; J90 Pleural effusion, not elsewhere classified
CPT/HCPCS: 74177; 78306; 82565; A9503; Q9967

== ENCOUNTER 2020-10-09 19:47 | Emergency (ER) | payer MEDICARE | END 2020-10-09 21:24 | disposition home or self-care (01) | LOC: ERS 19:47 | DX: T83.091A Other mechanical complication of indwelling urethral catheter, initial encounter (principal); R33.9 Retention of urine, unspecified; J44.9 Chronic obstructive pulmonary disease, unspecified; I11.0 Hypertensive heart disease with heart failure; I50.9 Heart failure, unspecified; Z79.899 Other long term (current) drug therapy; Z79.01 Long term (current) use of anticoagulants | CPT/HCPCS: 51703 ==

== ENCOUNTER 2020-10-20 07:05 | Emergency (ER) | payer MEDICARE ==
[2020-10-20 08:48] LABS: Bilirubin Negative (Negative); Blood, Urine Moderate (Negative); Glucose, Urine (Dipstick) Negative (Negative); Ketone, Urine Negative (Negative); Leukocyte Large (Negative); Nitrite Negative (Negative); Protein, Urine (Dipstick) 100 mg/dL (Neg-Trace); Urobilinogen 0.2 mg/dL (Less than 2)
[2020-10-20 08:49] LABS: Bacteria/HPF 2+ HPF (None Seen); Clarity Cloudy (Clear); Squamous Epithelial 0-3 HPF (0-3); WBC/HPF 21-50 HPF (0-3)
[2020-10-20 08:50] LABS: Triple Phosphate Crystal Rare HPF (None Seen)
== END 2020-10-20 09:27 | disposition home or self-care (01) ==
LOC: ERS 07:05
DX: T83.091A Other mechanical complication of indwelling urethral catheter, initial encounter (principal); T83.592A Infection and inflammatory reaction due to indwelling ureteral stent, initial encounter; J44.9 Chronic obstructive pulmonary disease, unspecified; I11.0 Hypertensive heart disease with heart failure; I50.9 Heart failure, unspecified; Z79.01 Long term (current) use of anticoagulants; Z79.899 Other long term (current) drug therapy
CPT/HCPCS: 51702; 81001; 87077; 87086; 87186

== ENCOUNTER 2021-01-04 03:24 | Emergency (ER) | payer MEDICARE ==
[2021-01-04 04:55] LABS: Bacteria/HPF 3+ HPF (None Seen); Bilirubin Negative (Negative); Blood, Urine 3+ (Negative); Calcium Oxalate Crystals 1+ HPF (None Seen); Clarity Turbid (Clear); Glucose, Urine (Dipstick) Normal (Negative); Ketone, Urine Negative (Negative); Leukocyte 500 Leu/uL (Negative); Nitrite Negative (Negative); Protein, Urine (Dipstick) 20 mg/dL (Neg-Trace); RBC/HPF 21-50 HPF (0-3); Specific Gravity, Urine 1.015 (1.002-1.036); Squamous Epithelial None Seen HPF (0-3); Urobilinogen Normal mg/dL (Less than 2); WBC/HPF Greater than 50 HPF (0-3); pH, Urine 6.5 (5.0-9.0)
[2021-01-04 05:09] LABS: Anion Gap 12 mmol/L (10-20); BUN (Urea Nitrogen) 22 mg/dL (8.4-25.7); Calc. Creatinine Clearance 0 mL/min (70-130); Carbon Dioxide 25 mmol/L (23-31); Chloride 103 mmol/L (98-107); Glucose 87 mg/dL (83-110); Potassium 4.4 mmol/L (3.5-5.1); Sodium 136 mmol/L (136-145)
== END 2021-01-04 05:45 | disposition home or self-care (01) ==
LOC: ERS 03:24
DX: T83.098A Other mechanical complication of other urinary catheter, initial encounter (principal); N39.0 Urinary tract infection, site not specified; R33.9 Retention of urine, unspecified; I11.0 Hypertensive heart disease with heart failure; I50.9 Heart failure, unspecified; J44.9 Chronic obstructive pulmonary disease, unspecified; Z79.01 Long term (current) use of anticoagulants; Z79.899 Other long term (current) drug therapy
CPT/HCPCS: 36415; 51702; 80048; 81003; 81015; 87077; 87086; 87186

== ENCOUNTER 2021-02-24 08:04 | Day surgery (SDC) | payer MEDICARE ==
[2021-02-23 13:54] VITALS: BMI 21.4
[2021-02-24 08:39] LABS: INR-International Normal Ratio 1.2; Prothrombin Time 14.9 sec (12.0-14.7)
[2021-02-24 08:40] LABS: PTT 32.3 sec (22.9-36.1)
[2021-02-24 09:02] VITALS: BP 131/69
[2021-02-24] MEDS ORDERED: Sodium Bicarbonate 2.5 MEQ/5 ML VIAL ONE (09:42)
== END 2021-02-24 12:50 | disposition home or self-care (01) ==
LOC: CT 08:04
PROVIDERS: ATTEND Urology
DX: N40.1 Benign prostatic hyperplasia with lower urinary tract symptoms (principal); R33.8 Other retention of urine; C61 Malignant neoplasm of prostate; N48.89 Other specified disorders of penis; I50.9 Heart failure, unspecified; I48.91 Unspecified atrial fibrillation; H40.9 Unspecified glaucoma; Z88.0 Allergy status to penicillin; Z88.2 Allergy status to sulfonamides; Z88.5 Allergy status to narcotic agent
CPT/HCPCS: 51102; 77002; 85610; 85730; C2627

== ENCOUNTER 2021-03-19 01:34 | Emergency (ER) | payer MEDICARE ==
[2021-03-19 02:45] LABS: Bilirubin Negative (Negative); Blood, Urine 3+ (Negative); Clarity Turbid (Clear); Glucose, Urine (Dipstick) Normal (Negative); Ketone, Urine Negative (Negative); Leukocyte 500 Leu/uL (Negative); Nitrite Negative (Negative); Protein, Urine (Dipstick) 50 mg/dL (Neg-Trace); RBC/HPF Greater than 50 HPF (0-3); Specific Gravity, Urine 1.018 (1.002-1.036); Squamous Epithelial None Seen HPF (0-3); Urobilinogen Normal mg/dL (Less than 2); WBC/HPF Greater than 50 HPF (0-3); pH, Urine 5.5 (5.0-9.0)
[2021-03-19 02:47] LABS: Bacteria/HPF 1+ HPF (None Seen)
== END 2021-03-19 04:22 | disposition home or self-care (01) ==
LOC: ERS 01:34
DX: N39.0 Urinary tract infection, site not specified (principal); R33.9 Retention of urine, unspecified; J44.9 Chronic obstructive pulmonary disease, unspecified; I11.0 Hypertensive heart disease with heart failure; I50.9 Heart failure, unspecified; Z79.899 Other long term (current) drug therapy
CPT/HCPCS: 51702; 81003; 81015; 87086; 93005

== ENCOUNTER 2021-04-28 16:47 | Emergency (ER) | payer MEDICARE ==
[2021-04-28 17:28] LABS: Hemoglobin 8.2 g/dL (14.0-18.0); Mean Corpuscular HGB CONC 33.7 g/dL (32.0-36.0); Mean Corpuscular Hemoglobin 39.2 pg (27.0-31.0); Mean Platelet Volume 7.1 fL (7.4-10.4); Platelet Count 267 thou/uL (130-400); RBC Distribution Width 16.7 % (11.5-14.5); Red Blood Cell (RBC) Count 2.09 mill/uL (4.70-6.10); White Blood Cell (WBC) Count 6.9 thou/uL (4.8-10.8)
[2021-04-28 17:29] LABS: #Eosinphils 0.2 thou/uL (0.0-0.7); #Lymphocytes 1.8 thou/uL (1.20-3.40); #Monocytes 0.7 thou/uL (0.11-0.59); #Neutrophils 4.2 thou/uL (1.40-6.50); %Basophils 0.7 % (0.0-1.0); %Eosinophils 2.4 % (0.0-10.0); %Lymphocytes 25.6 % (21.0-51.0); %Monocytes 10.5 % (0.0-10.0); %Neutrophils 60.7 % (42.0-75.0)
[2021-04-28 17:47] LABS: MDiff Complete? YES; Macrocytosis MODERATE=16-30 cells (100X) (0-5/hpf); Platelet Morphology Comment Appears Adequate; Polychromasia SLIGHT = 2-3 cells (100X) (0-2/hpf); Tear Drops SLIGHT = 2-5 cells (100X) (0-1/hpf)
[2021-04-28 17:49] LABS: ALT (SGPT) 12 U/L (8-55); AST (SGOT) 18 U/L (5-34); Albumin 3.7 g/dL (3.4-4.8); Alkaline Phosphatase 113 U/L (40-110); Anion Gap 12 mmol/L (10-20); BUN (Urea Nitrogen) 28 mg/dL (8.4-25.7); Bilirubin, Total 0.6 mg/dL (0.2-1.2); Calc. Creatinine Clearance 0 mL/min (70-130); Calcium 8.6 mg/dL (7.8-10.44); Carbon Dioxide 27 mmol/L (23-31); Chloride 103 mmol/L (98-107); Globulin 3.3 g/dL (2.4-3.5); Glucose 102 mg/dL (83-110); Potassium 3.7 mmol/L (3.5-5.1); Sodium 138 mmol/L (136-145)
[2021-04-28 19:07] LABS: Bilirubin Negative (Negative); Blood, Urine Negative (Negative); Clarity Clear (Clear); Glucose, Urine (Dipstick) Normal (Negative); Ketone, Urine Negative (Negative); Leukocyte 500 Leu/uL (Negative); Nitrite 1+ (Negative); Protein, Urine (Dipstick) 20 mg/dL (Neg-Trace); RBC/HPF 0-3 HPF (0-3); Specific Gravity, Urine 1.012 (1.002-1.036); Squamous Epithelial 0-3 HPF (0-3); Urobilinogen Normal mg/dL (Less than 2)
[2021-04-28 19:08] LABS: Bacteria/HPF 1+ HPF (None Seen)
== END 2021-04-28 20:39 | disposition home or self-care (01) ==
LOC: ERS 16:47
DX: T83.098A Other mechanical complication of other urinary catheter, initial encounter (principal); R82.71 Bacteriuria; I11.0 Hypertensive heart disease with heart failure; I50.9 Heart failure, unspecified; J44.9 Chronic obstructive pulmonary disease, unspecified; Z79.899 Other long term (current) drug therapy
CPT/HCPCS: 36415; 51705; 51798; 80053; 81003; 81015; 85025

== ENCOUNTER 2021-05-15 09:04 | Outpatient (CLI) | payer MEDICARE ==
[2021-05-15] MEDS ORDERED: Iopamidol 370 76% 100 ML VIAL ONE (10:31)
== END 2021-05-15 09:05 | disposition home or self-care (01) ==
LOC: CT 09:04
PROVIDERS: ATTEND Internal Medicine Hematology & Oncology
DX: C61 Malignant neoplasm of prostate (principal); R19.00 Intra-abdominal and pelvic swelling, mass and lump, unspecified site; N21.0 Calculus in bladder; J90 Pleural effusion, not elsewhere classified; I51.7 Cardiomegaly; C79.51 Secondary malignant neoplasm of bone; M84.48XA Pathological fracture, other site, initial encounter for fracture
CPT/HCPCS: 74177; 78306; 80053; 82565; A9503; 36415; Q9967

== ENCOUNTER 2021-07-30 12:38 | Inpatient (IN) | payer MEDICARE ==
[2021-07-30 13:41] LABS: #Eosinphils 0.3 thou/uL (0.0-0.7); #Lymphocytes 0.7 thou/uL (1.20-3.40); #Monocytes 0.5 thou/uL (0.11-0.59); #Neutrophils 7.3 thou/uL (1.40-6.50); %Basophils 0.2 % (0.0-1.0); %Eosinophils 3.4 % (0.0-10.0); %Lymphocytes 8.2 % (21.0-51.0); %Neutrophils 82.1 % (42.0-75.0); Mean Corpuscular HGB CONC 31.9 g/dL (32.0-36.0); Mean Platelet Volume 6.8 fL (7.4-10.4); Platelet Count 421 thou/uL (130-400); RBC Distribution Width 15.6 % (11.5-14.5); Red Blood Cell (RBC) Count 2.31 mill/uL (4.70-6.10); White Blood Cell (WBC) Count 8.9 thou/uL (4.8-10.8)
[2021-07-30] MEDS ORDERED: Morphine 4 MG/ML VIAL ONE (13:51)
[2021-07-30] MEDS ORDERED: Ondansetron PF 4 MG/2 ML Vial ONE (13:51)
[2021-07-30] MEDS ORDERED: Cefepime 2 GM VIAL ONE (13:55)
[2021-07-30] MEDS ORDERED: Vancomycin 1 GM/200 ML BAG ONE (13:55)
[2021-07-30 14:03] LABS: Anisocytosis SLIGHT = 6-15 cells (100X) (0-5/hpf); Band 13 % (5-11); Eosinophils 4 % (0-10); Lymphocytes 8 % (21-51); MDiff Complete? YES; Macrocytosis SLIGHT = 6-15 cells (100X) (0-5/hpf); Monocytes 8 % (0-10); Neutrophil 66 % (42-75); Platelet Morphology Comment Appears Increased; Polychromasia SLIGHT = 2-3 cells (100X) (0-2/hpf); Reactive Lymphocytes 1 % (0-10)
[2021-07-30 14:09] LABS: ALT (SGPT) 18 U/L (8-55); AST (SGOT) 34 U/L (5-34); Albumin 2.7 g/dL (3.4-4.8); Alkaline Phosphatase 141 U/L (40-110); Anion Gap 15 mmol/L (10-20); BUN (Urea Nitrogen) 37 mg/dL (8.4-25.7); Bilirubin, Total 1.1 mg/dL (0.2-1.2); Calc. Creatinine Clearance 0 mL/min (70-130); Calcium 7.7 mg/dL (7.8-10.44); Carbon Dioxide 21 mmol/L (23-31); Chloride 101 mmol/L (98-107); Globulin 3.2 g/dL (2.4-3.5); Glucose 89 mg/dL (83-110); Potassium 2.5 mmol/L (3.5-5.1); Protein, Total 5.9 g/dL (5.8-8.1); Sodium 134 mmol/L (136-145)
[2021-07-30 14:37] LABS: CKMB 4.7 ng/mL (0-6.6)
[2021-07-30] MEDS ORDERED: Magnesium 2 GM/50 ML BAG (IN WATER) ONE (14:39)
[2021-07-30] MEDS ORDERED: Potassium Chloride 20 MEQ TAB ONE (14:39)
[2021-07-30] MEDS ORDERED: Potassium Chloride 20 MEQ/100 ML PREMIX BAG ONE ×2 (14:39→16:00)
[2021-07-30] MEDS ORDERED: Furosemide 20 MG/2 ML VIAL ONE (15:07)
[2021-07-30] MEDS ORDERED: Lorazepam 2 MG/ML VIAL ONE (16:00)
[2021-07-30] MEDS ORDERED: Ondansetron PF 4 MG/2 ML Vial IVP PRN (16:27)
[2021-07-30 16:30] LABS: SARS-CoV-2 NAA Rapid Test Not Detected (NotDetected)
[2021-07-30] MEDS ORDERED: Morphine 2 MG/ML VIAL SLOW IVP PRN (16:32)
[2021-07-30] MEDS ORDERED: Albuterol Sulfate 2.5 mg/3 ml Neb NEB PRN (16:32)
[2021-07-30] MEDS ORDERED: Scopolamine 1.5 mg/72 hour Patch TD PRN (16:32)
[2021-07-30] MEDS ORDERED: Lorazepam 2 MG/ML VIAL SLOW IVP PRN (16:32)
[2021-07-30 17:03] LABS: Troponin I 2.414 ng/mL (< 0.028)
[2021-07-30] MEDS ORDERED: Tamsulosin HCl 0.4 MG CAP PO SCH (21:00)
[2021-07-30] MEDS ORDERED: Apixaban 5 MG TAB PO SCH (21:00)
[2021-07-30 21:29] VITALS: BP 82/71
[2021-07-30] MEDS ORDERED: Digoxin 0.5 MG/2 ML AMP SLOW IVP SCH (22:45)
[2021-07-30 23:35] VITALS: BMI 19.5
[2021-07-31] MEDS ORDERED: Acetaminophen 650 MG Suppository PR PRN (00:28)
[2021-07-31 04:33] LABS: Anion Gap 15 mmol/L (10-20); BUN (Urea Nitrogen) 41 mg/dL (8.4-25.7); Calc. Creatinine Clearance 26 mL/min (70-130); Calcium 7.7 mg/dL (7.8-10.44); Carbon Dioxide 19 mmol/L (23-31); Chloride 103 mmol/L (98-107); Magnesium 2.4 mg/dL (1.6-2.6); Potassium 3.5 mmol/L (3.5-5.1); Sodium 133 mmol/L (136-145)
[2021-07-31 04:38] LABS: Glucose 42 mg/dL (83-110)
[2021-07-31] MEDS ORDERED: Dextrose 5% in Water 1,000 ML IV PRN (04:43)
[2021-07-31] MEDS: Dextrose 50% Abboject 50 ML SYRINGE SLOW IVP PRN ×2 (04:53→06:04)
[2021-07-31 07:49] VITALS: TEMP 97.3
[2021-07-31] MEDS ORDERED: Apixaban 2.5 MG TAB PO SCH (09:00)
[2021-07-31] MEDS ORDERED: Furosemide 20 MG/2 ML VIAL SLOW IVP SCH (09:00)
[2021-07-31] MEDS ORDERED: levETIRAcetam in NS 1,000 MG in Premix Bag 1 BAG IVPB SCH (09:00)
[2021-07-31] MEDS ORDERED: Morphine 4 MG/ML VIAL SLOW IVP PRN (10:22)
== END 2021-07-31 15:15 | disposition hospice, home (50) | DRG 280 ==
LOC: ERS 12:38 → ERHOLD 15:32 → IMCU/EMU 21:40
PROVIDERS: ADMIT Internal Medicine; ATTEND Internal Medicine
DX: I11.0 Hypertensive heart disease with heart failure (principal); J96.01 Acute respiratory failure with hypoxia; I21.A1 Myocardial infarction type 2; I50.33 Acute on chronic diastolic (congestive) heart failure; I47.2 Ventricular tachycardia; E44.0 Moderate protein-calorie malnutrition; Z68.1 Body mass index [BMI] 19.9 or less, adult; Z20.822 Contact with and (suspected) exposure to COVID-19; Z66 Do not resuscitate; Z51.5 Encounter for palliative care; C61 Malignant neoplasm of prostate; H40.9 Unspecified glaucoma; J44.9 Chronic obstructive pulmonary disease, unspecified; I48.0 Paroxysmal atrial fibrillation; E87.6 Hypokalemia; D63.8 Anemia in other chronic diseases classified elsewhere; Z88.0 Allergy status to penicillin; Z88.5 Allergy status to narcotic agent; Z79.899 Other long term (current) drug therapy; Z79.51 Long term (current) use of inhaled steroids; M81.8 Other osteoporosis without current pathological fracture; D50.0 Iron deficiency anemia secondary to blood loss (chronic); D53.9 Nutritional anemia, unspecified
CPT/HCPCS: 36415; 36416; 71045; 80048; 80053; 82306; 82553; 82607; 82668; 82728; 82746; 83540; 83550; 83605; 83735; 83880; 84153; 84484; 85025; 87040; 93005; 94660; J0692; J1160; J1940; J2060; J2270; J2405; J3370; J3475; J3480; U0002

== ENCOUNTER 2021-07-31 15:58 | Inpatient (IN) | payer OTHER ==
[2021-07-31] MEDS ORDERED: Ondansetron PF 4 MG/2 ML Vial IVP PRN (16:45)
[2021-07-31] MEDS ORDERED: Haloperidol Lactate 5 MG/ML VIAL SLOW IVP PRN (16:45)
[2021-07-31] MEDS ORDERED: Acetaminophen 650 MG Suppository PR PRN (16:45)
[2021-07-31] MEDS ORDERED: Zolpidem Tartrate 5 MG TAB PO PRN (16:45)
[2021-07-31] MEDS ORDERED: Loperamide HCl 2 MG CAP PO PRN (16:45)
[2021-07-31] MEDS ORDERED: Promethazine HCl 25 MG SUPP PR PRN (16:45)
[2021-07-31] MEDS ORDERED: Hyoscyamine Sulfate SL 0.125 mg Tablet SL PRN (16:45)
[2021-07-31] MEDS ORDERED: Lorazepam 2 MG/ML VIAL SLOW IVP PRN (16:45)
[2021-07-31] MEDS ORDERED: Morphine 10 MG/0.5 ML ORAL SYRINGE SL PRN (16:45)
[2021-07-31] MEDS ORDERED: Scopolamine 1.5 mg/72 hour Patch TOP PRN (16:45)
[2021-07-31] MEDS ORDERED: Senokot 8.6 MG TAB PO PRN (16:45)
[2021-07-31] MEDS ORDERED: Milk Of Magnesia 30 ML UDCUP PO PRN (16:45)
[2021-07-31 18:02] VITALS: BMI 19.5
[2021-07-31] MEDS: Lorazepam 2 MG/ML VIAL SLOW IVP PRN (21:08)
[2021-07-31 22:31] VITALS: BP 89/46
[2021-07-31] MEDS: Morphine 4 MG/ML VIAL SLOW IVP SCH (23:44)
[2021-08-01 07:45] VITALS: TEMP 96.6
[2021-08-01] MEDS: Morphine 4 MG/ML VIAL SLOW IVP SCH (09:26)
[2021-08-01] MEDS: Lorazepam 2 MG/ML VIAL SLOW IVP PRN (09:27)
== END 2021-08-01 09:47 | disposition expired | DRG 951 ==
LOC: IMCU/EMU 15:58
PROVIDERS: ADMIT Student in an Organized Health Care Education/Training Program; ATTEND Student in an Organized Health Care Education/Training Program
PROC: 5A09357 Assistance with Respiratory Ventilation, Less than 24 Consecutive Hours, Continuous Positive Airway Pressure (ICD-10-PCS; principal; 2021-07-31)
DX: Z51.5 Encounter for palliative care (principal); L89.153 Pressure ulcer of sacral region, stage 3; Z66 Do not resuscitate; Z74.01 Bed confinement status; J44.9 Chronic obstructive pulmonary disease, unspecified; I25.10 Atherosclerotic heart disease of native coronary artery without angina pectoris; I25.2 Old myocardial infarction; D64.9 Anemia, unspecified; I11.0 Hypertensive heart disease with heart failure; I50.9 Heart failure, unspecified; C61 Malignant neoplasm of prostate
CPT/HCPCS: J2060; J2270